=== PATIENT | female | born 1965 | race Caucasian/White ===

== ENCOUNTER 2017-05-25 09:26 | Observation (INO) | payer BC ==
[2017-05-25] VITALS (7 sets, daily range): BP systolic 125–140; BP diastolic 79–87; PULSE 72–87; RESP 20; TEMP 97.9–98.5; O2SAT 96–100
[~2017-05-25] VITALS: Ht 166.4 cm; Wt 63.5 kg
[2017-05-25] MEDS ORDERED: CHOL100025 CHEW (09:37)
[2017-05-25] MEDS ORDERED: ASPIRIN 81 MG CHEW TAB PO ONE (09:45)
[2017-05-25] MEDS ORDERED: SODIUM CHLORIDE 0.9% FLUSH 10 ML FLUSH IVF PRN (09:45)
--- NOTE | 2017-05-25 09:46 | PD ---
HPI Chief Complaint: Chest Pain Time Seen by Provider: 09:39 Travel History International Travel<30 days: No Contact w/Intl Traveler<30days: No Traveled to known affect area: No History of Present Illness HPI 51-year-old female here for evaluation of chest pain. Patient reports having left-sided chest pain since around 10 PM last night. Pain is been constant, described as sharp/ache, worse with inspiration, mild to moderate. The patient took a baby aspirin this morning. She denies any known history of CAD. There is family history of heart disease. No history of DVT or PE. No fevers, chills , cough, or recent illness. No hemoptysis. Patient reports that she drove down here from [place] 3 days ago. PFSH Past Medical History ?: Not Past Surgical History Other Surgery: Yes (HAJA) Social History Alcohol Use: Yes Tobacco Use: No Substance Use: No Allergies-Medications (Allergen,Severity, Reaction): Coded Allergies: codeine (Verified Allergy, Unknown, 05/25/17) Reported Meds & Prescriptions Reported Meds & Active Scripts Active Reported Vitamin D3 (Cholecalciferol) 1,000 Unit Chew 1,000 Units CHEW DAILY Review of Systems Except as stated in HPI: all other systems reviewed are Neg Physical Exam Narrative GENERAL: Well-developed, well-nourished, comfortable, no apparent distress. SKIN: Focused skin assessment warm/dry. HEAD: Atraumatic. Normocephalic. EYES: Pupils equal and round. No scleral icterus. No injection or drainage. ENT: Mucous membranes pink and moist. NECK: Trachea midline. No JVD. CARDIOVASCULAR: Regular rate and rhythm. Distal pulses brisk and equal bilaterally. RESPIRATORY: No accessory muscle use. Clear to auscultation. Breath sounds equal bilaterally. GASTROINTESTINAL: Abdomen soft, non-tender, nondistended. Hepatic and splenic margins not palpable. MUSCULOSKELETAL: No obvious deformities. No clubbing. No cyanosis. No edema. Bilateral calves are supple, nontender. NEUROLOGICAL: Awake and alert. No obvious cranial nerve deficits. Motor grossly within normal limits. Normal speech. PSYCHIATRIC: Appropriate mood and affect; insight and judgment normal. Data Data Last Documented VS Vital Signs Date Time Temp Pulse Resp B/P (MAP) Pulse Ox O2 Delivery O2 Flow Rate FiO2 05/25/17 11:30 72 20 125/81 (96) 99 05/25/17 10:44 Nasal Cannula 2.00 05/25/17 09:34 98.5 Orders Orders Basic Metabolic Panel (Bmp) (05/25/17 09:43) Ckmb (Isoenzyme) Profile (05/25/17 09:43) Complete Blood Count With Diff (05/25/17 09:43) D-Dimer (05/25/17 09:43) Magnesium (Mg) (05/25/17 09:43) Prothrombin Time / Inr (Pt) (05/25/17 09:43) Act Partial Throm Time (Ptt) (05/25/17 09:43) Troponin I (05/25/17 09:43) Chest, Single Ap (05/25/17 09:43) Ecg Monitoring (05/25/17 09:43) Bilateral Bp Monitoring (05/25/17 09:43) Iv Access Insert/Monitor (05/25/17 09:43) Oximetry (05/25/17 09:43) Aspirin Chew (Aspirin Chew) (05/25/17 09:45) Sodium Chloride 0.9% Flush (Ns Flush) (05/25/17 09:45) CKMB (05/25/17 09:50) CKMB% (05/25/17 09:50) Labs Laboratory Tests Test 05/25/17 09:50 White Blood Count 3.8 TH/MM3 Red Blood Count 4.26 MIL/MM3 Hemoglobin 12.5 GM/DL Hematocrit 36.9 % Mean Corpuscular Volume 86.7 FL Mean Corpuscular Hemoglobin 29.5 PG Mean Corpuscular Hemoglobin Concent 34.0 % Red Cell Distribution Width 12.2 % Platelet Count 145 TH/MM3 Mean Platelet Volume 7.8 FL Neutrophils (%) (Auto) 62.5 % Lymphocytes (%) (Auto) 26.8 % Monocytes (%) (Auto) 8.7 % Eosinophils (%) (Auto) 1.5 % Basophils (%) (Auto) 0.5 % Neutrophils # (Auto) 2.4 TH/MM3 Lymphocytes # (Auto) 1.0 TH/MM3 Monocytes # (Auto) 0.3 TH/MM3 Eosinophils # (Auto) 0.1 TH/MM3 Basophils # (Auto) 0.0 TH/MM3 CBC Comment DIFF FINAL Differential Comment Prothrombin Time 10.3 SEC Prothromb Time International Ratio 0.9 RATIO Activated Partial Thromboplast Time 21.7 SEC D-Dimer Quantitative (PE/DVT) 0.29 MG/L FEU Blood Urea Nitrogen 19 MG/DL Creatinine 0.78 MG/DL Random Glucose 95 MG/DL Calcium Level 8.6 MG/DL Magnesium Level 2.1 MG/DL Sodium Level 142 MEQ/L Potassium Level 3.8 MEQ/L Chloride Level 109 MEQ/L Carbon Dioxide Level 26.8 MEQ/L Anion Gap 6 MEQ/L Estimat Glomerular Filtration Rate 77 ML/MIN Total Creatine Kinase 103 U/L Creatine Kinase MB LESS THAN 0.5 NG/ML Troponin I LESS THAN 0.02 NG/ML MDM Medical Decision Making Medical Screen Exam Complete: Yes Emergency Medical Condition: Yes Interpretation(s) EKG: Sinus, rate 85, normal axis, normal intervals, no acute ischemic abnormality. Differential Diagnosis ACS, pneumothorax, pericarditis, PE, pneumonia, pleurisy, dissection Narrative Course Vital signs show heart rate 87, blood pressure 140/83, pulse ox 100% on room air , oral temp of 98.5F. CBC shows WBC 3.8, hemoglobin 12.5, hematocrit 36.9, platelets 145. BMP is unremarkable. Cardiac enzymes are negative. D-dimer is negative at 0.29. Chest x-ray: No acute cardio pulmonary disease. Patient was made aware of all findings. She was given a full aspirin. She now describes the pain as a dull/ache, worse with inspiration. I believe she is a good candidate for further cardiac evaluation in the chest pain center. She is amenable to this plan. Case discussed with hospitalist Dr. Snaders who will admit the patient to her service. Diagnosis Primary Impression: Chest pain Qualified Codes: R07.9 - Chest pain, unspecified Admitting Information Admitting Physician Requests: Observation Ulysses Stewart MD May 25, 2017 09:46
[2017-05-25 09:55] LABS: AUTOMATED NEUTROPHIL # 2.4 TH/MM3 (1.8-7.7); BASOPHIL % 0.5 % (0.0-2.0); EOSINOPHIL # 0.1 TH/MM3 (0-0.4); EOSINOPHIL % 1.5 % (0.0-4.0); HEMATOCRIT 36.9 % (35.0-46.0); HEMO FLAGS DIFF FINAL; LYMPH % 26.8 % (9.0-44.0); MEAN CELL VOLUME 86.7 FL (80.0-100.0); MEAN CORPUSCULAR HEMOGLOBIN 29.5 PG (27.0-34.0); MONO % 8.7 % (0.0-8.0); NEUT % 62.5 % (16.0-70.0); PLATELET COUNT 145 TH/MM3 (150-450); RED BLOOD COUNT 4.26 MIL/MM3 (4.00-5.30); RED CELL DISTRIBUTION WIDTH 12.2 % (11.6-17.2); WHITE BLOOD COUNT 3.8 TH/MM3 (4.0-11.0)
[2017-05-25 10:02] LABS: CHLORIDE 109 MEQ/L (98-107); POTASSIUM 3.8 MEQ/L (3.5-5.1); SODIUM (NA) 142 MEQ/L (136-145)
[2017-05-25 10:04] LABS: ANION GAP 6 MEQ/L (5-15); BICARBONATE 26.8 MEQ/L (21.0-32.0); MAGNESIUM 2.1 MG/DL (1.5-2.5)
[2017-05-25 10:07] LABS: GLOMERULAR FILTRATION RATE 77 ML/MIN (>89)
[2017-05-25 10:08] LABS: APTT (PATIENT) 21.7 SEC (24.3-30.1); INTERNATIONAL NORMALIZED RATIO 0.9 RATIO; PROTHROMBIN TIME - PATIENT 10.3 SEC (9.8-11.6)
[2017-05-25 10:10] LABS: BLOOD UREA NITROGEN 19 MG/DL (7-18); CREATINE KINASE 103 U/L (26-192)
[2017-05-25 10:22] LABS: CKMB LESS THAN 0.5 NG/ML (0.5-3.6)
--- NOTE | 2017-05-25 10:47 | RADRPT ---
EXAM DATE/TIME: 05/25/2017 10:05 [facility] COMPARISON: No previous studies available for comparison. INDICATIONS : Chest pain. MEDICAL HISTORY : None. SURGICAL HISTORY : Bunionectomy. ENCOUNTER: Initial ACUITY: 2 days PAIN SCORE: 7/10 LOCATION: Left chest FINDINGS: A single view of the chest demonstrates the lungs to be symmetrically aerated without evidence of mas s, infiltrate or effusion. The cardiomediastinal contours are unremarkable. Osseous structures are intact. CONCLUSION: 1. No acute cardiopulmonary disease. Chaz Gaines MD on May 25, 2017 at 10:45 Board Certified Radiologist. This report was verified electronically.
[2017-05-25] MEDS ORDERED: NITROGLYCERIN 0.4 MG SL 25 TABS/BTL SL PRN (12:00)
[2017-05-25] MEDS ORDERED: SODIUM CHLORIDE 0.9% FLUSH 10 ML FLUSH IV FLUSH PRN (12:00)
[2017-05-25] MEDS ORDERED: ACETAMINOPHEN 500 MG CPLT PO PRN (12:00)
[2017-05-25] MEDS ORDERED: ONDANSETRON HCL 4 MG/2 ML VIAL IV PRN (12:00)
--- NOTE | 2017-05-25 12:34 | HHI.HP ---
[facility] Primary Care Physician Unknown Admission Diagnosis Cheat Pain Diagnoses: (1) Chest pain Diagnosis: Principal Chief Complaint: "chest pain" Travel History International Travel<30 Days: No Contact w/Intl Traveler <30 Da: No Traveled to Known Affected Are: No History of Present Illness 51-year-old female with Vitamin D deficiency and possible hyperlipidemia but no other medical problems presents with complaint of chest pain and is accepted to chest pain center. Patient states stabbing chest pain started at 10 PM last night over the left side of her chest. She states it has been constant since onset. She states pain came on gradually and was a 5/10 last night. She states pain is still present now but is improved after receiving medication. The patient states pain is worse with inhaling or moving. She states pain was worse when she lifted her left arm to get on her shirt this morning. She denies any heavy lifting although is active and exercises, swimming, but denies any recent strain. Denies any associated diaphoresis, shortness of breath, numbness or tingling in the upper extremities , radiation of pain to the neck/jaws/back/arms, or nausea/vomiting. She denies any fevers or chills, cold, or cough symptoms. She took a baby aspirin at home and then received aspirin here in the ED. She admits to occasional abdominal pain, feeling "full" but this has been an ongoing issue, occurred this morning, but is not new. Denies any recent issues with regurgitation or belching. Patient drove here for vacation from [place] on Wednesday but did make frequent stops. She denies any hormone use including control, history of DVT or PE, hemoptysis, recent hospitalization/trauma/surgery in the last 3 months, recent immobilization of the legs, active cancer, or recent leg swelling or calf pain. Patient's states she has had multiple episodes of this chest pain in the past. She has never undergone a stress test. Review of Systems Constitutional: DENIES: Diaphoretic episodes, Fever, Chills, Dizziness Eyes: DENIES: Blurred vision Ears, nose, mouth, throat: DENIES: Throat pain, Ear Pain, Running Nose Respiratory: DENIES: Cough, Hemoptysis, Shortness of breath Cardiovascular: COMPLAINS OF: Chest pain, DENIES: Lower Extremity Edema Gastrointestinal: COMPLAINS OF: Abdominal pain, DENIES: Black stools, Bloody stools, Constipation, Diarrhea, Nausea, Vomiting Genitourinary: DENIES: Urinary frequency, Hematuria, Dysuria Musculoskeletal: DENIES: Back pain, Neck pain Integumentary: DENIES: Rash Neurologic: COMPLAINS OF: Headache (frequent from sleeping wrong (neck tension) ), DENIES: Localized weakness, Paresthesias Past Family Social History Past Medical History States her cholesterol is 200, but HDL is high. Lifestyle modifications only. Vitamin D deficiency Past Surgical History Left bunionectomy Reported Medications Vitamin D3 (Cholecalciferol) 1,000 Unit Chew 1,000 Units CHEW DAILY Allergies: Coded Allergies: codeine (Verified Allergy, Unknown, 05/25/17) Family History Mother: Age 75, living; hypertension, hyperlipidemia. No history of ID. Does not know father's history. Maternal aunt: Heart murmur. No siblings. Social History Patient works as a financial aid director. From [place]. Patient states she is currently on vacation so she is drinking about 2 alcoholic beverages per day but normally only drinks 2 per week. Denies history of tobacco use. Denies history of illicit drug use. Physical Exam Vital Signs Vital Signs Date Time Temp Pulse Resp B/P (MAP) Pulse Ox O2 Delivery O2 Flow Rate FiO2 05/25/17 12:20 76 20 126/85 (99) 96 05/25/17 11:30 72 20 125/81 (96) 99 05/25/17 10:44 75 20 131/83 (99) 100 Nasal Cannula 2.00 05/25/17 09:56 76 20 137/79 (98) 98 Nasal Cannula 2.00 134/85 (101) 05/25/17 09:52 98 05/25/17 09:34 98.5 87 20 140/83 (102) 100 Physical Exam GENERAL: This is a pleasant well-nourished, well-developed patient, in no apparent distress. SKIN: No rashes, ecchymoses or lesions. Warm and dry. HEAD: Atraumatic. Normocephalic. EYES: No scleral icterus. No injection or drainage. NECK: Trachea midline. CHEST: Mild reproducible tenderness over the left anterior chest, but patient states this is different from the pain she is feeling. There is no reproducible tenderness over the left lateral chest. No chest pain elicited with left shoulder flexion. CARDIOVASCULAR: Regular rate and rhythm without murmurs, gallops, or rubs. RESPIRATORY: Clear to auscultation. Breath sounds equal bilaterally. No wheezes , rales, or rhonchi. GASTROINTESTINAL: Normoactive bowel sounds. Abdomen soft, non-tender, nondistended. No guarding. MUSCULOSKELETAL: No lower extremity edema or calf pain bilaterally. NEUROLOGICAL: Awake and alert. Motor grossly within normal limits. Five out of 5 muscle strength in bilateral arms and legs. Normal speech. PSYCHIATRIC: Normal mood and affect. Insight and judgement normal. Laboratory Laboratory Tests Test 05/25/17 09:50 White Blood Count 3.8 Red Blood Count 4.26 Hemoglobin 12.5 Hematocrit 36.9 Mean Corpuscular Volume 86.7 Mean Corpuscular Hemoglobin 29.5 Mean Corpuscular Hemoglobin Concent 34.0 Red Cell Distribution Width 12.2 Platelet Count 145 Mean Platelet Volume 7.8 Neutrophils (%) (Auto) 62.5 Lymphocytes (%) (Auto) 26.8 Monocytes (%) (Auto) 8.7 Eosinophils (%) (Auto) 1.5 Basophils (%) (Auto) 0.5 Neutrophils # (Auto) 2.4 Lymphocytes # (Auto) 1.0 Monocytes # (Auto) 0.3 Eosinophils # (Auto) 0.1 Basophils # (Auto) 0.0 CBC Comment DIFF FINAL Differential Comment Prothrombin Time 10.3 Prothromb Time International Ratio 0.9 Activated Partial Thromboplast Time 21.7 D-Dimer Quantitative (PE/DVT) 0.29 Blood Urea Nitrogen 19 Creatinine 0.78 Random Glucose 95 Calcium Level 8.6 Magnesium Level 2.1 Sodium Level 142 Potassium Level 3.8 Chloride Level 109 Carbon Dioxide Level 26.8 Anion Gap 6 Estimat Glomerular Filtration Rate 77 Total Creatine Kinase 103 Creatine Kinase MB LESS THAN 0.5 Troponin I LESS THAN 0.02 Result Diagram: 05/25/17 0950 05/25/17 0950 Caprini VTE Risk Assessment Caprini VTE Risk Assessment: No/Low Risk (score <= 1) Caprini Risk Assessment Model Point Value = 1 Point Value = 2 Point Value = 3 Point Value = 5 Age 41-60 Minor surgery BMI > 25 kg/m2 Swollen legs Varicose veins or History of unexplained or recurrent spontaneous Oral contraceptives or hormone replacement Sepsis (< 1 month) Serious lung disease, including pneumonia (< 1 month) Abnormal pulmonary function Acute myocardial infarction Congestive heart failure (< 1 month) History of inflammatory bowel disease Medical patient at bed rest Age 61-74 Arthroscopic surgery Major open surgery (> 45 min) Laparoscopic surgery (> 45 min) Malignancy Confined to bed (> 72 hours) Immobilizing plaster cast Central venous access Age >= 75 History of VTE Family history of VTE Factor V Leiden Prothrombin [id number] Lupus anticoagulant Anticardiolipin antibodies Elevated serum homocysteine Heparin-induced thrombocytopenia Other congenital or acquired thrombophilia Stroke (< 1 month) Elective arthroplasty Hip, pelvis, or leg fracture Acute spinal cord injury (< 1 month) Prophylaxis Regimen Total Risk Factor Score Risk Level Prophylaxis Regimen 0-1 Low Early ambulation 2 Moderate Order ONE of the following: *Sequential Compression Device (SCD) *Heparin 5000 units SQ BID 3-4 Higher Order ONE of the following medications: *Heparin 5000 units SQ TID *Enoxaparin/Lovenox 40 mg SQ daily (WT < 150 kg, CrCl > 30 mL/min) *Enoxaparin/Lovenox 30 mg SQ daily (WT < 150 kg, CrCl > 10-29 mL/min) *Enoxaparin/Lovenox 30 mg SQ BID (WT < 150 kg, CrCl > 30 mL/min) AND/OR *Sequential Compression Device (SCD) 5 or more Highest Order ONE of the following medications: *Heparin 5000 units SQ TID (Preferred with Epidurals) *Enoxaparin/Lovenox 40 mg SQ daily (WT < 150 kg, CrCl > 30 mL/min) *Enoxaparin/Lovenox 30 mg SQ daily (WT < 150 kg, CrCl > 10-29 mL/min) *Enoxaparin/Lovenox 30 mg SQ BID (WT < 150 kg, CrCl > 30 mL/min) AND *Sequential Compression Device (SCD) Assessment and Plan Assessment and Plan 51-year-old female with: Chest pain, atypical: Constant since 10 PM last night, stabbing over left lateral chest worse with inhaling and movement. Chest x-ray personally interpreted without acute disease. No elevation in white blood cell count. No recent cold symptoms. D-dimer negative. Vitals normal. EKG #1 personally interpreted with normal sinus rhythm and no evidence of ischemia. First set of cardiac enzymes normal. Likely costochondritis although other differentials include GERD, pleurisy, anxiety, and less likely cardiac. -Serial EKG and enzyme -Telemetry -Daily 325 mg aspirin -Nitroglycerin as needed for chest pain -NPO. Second set of enzymes and EKG #2 reviewed and are normal. Treadmill test ordered. DVT prevention: Early ambulation. ETT reviewed by myself and Dr. Powell, dough catcher. No ischemia evident. Patient will be given 15 mg IV Toradol. If Toradol provides relief, she is advised she can take ibuprofen at home. Discharge disposition: Home in fair condition. Diet: Heart healthy Activity: Avoid heavy lifting, bending, or strenuous exercise. Medications: Continue home medication. Follow-up: PCP 1 week. Patient advised to return to the ER if she has any worsening pain or develops shortness of breath. Discussed Condition With patient, Dr. Sanders Problem Qualifiers (1) Chest pain: Qualified Codes: R07.1 - Chest pain on breathing Eloise Gutierrez May 25, 2017 12:34
[2017-05-25 13:34] LABS: CREATINE KINASE 90 U/L (26-192)
[2017-05-25] MEDS ORDERED: KETOROLAC TROMETHAMINE 30 MG/ML (IVP) VIAL IV PUSH ONE (17:15)
--- NOTE | 2017-05-25 17:15 | HHI.DCPOC ---
Discharge Care Plan Diagnosis: (1) Chest pain Your Health Problems Are: Chest Pain Goals to Promote Your Health * To prevent worsening of your condition and complications * To maintain your health at the optimal level Directions to Meet Your Goals Take your medications as prescribed Follow your dietary instruction Follow activity as directed Keep your appointments as scheduled Take your immunizations and boosters as scheduled If your symptoms worsen call your PCP, if no PCP go to Urgent Care Center or Emergency Room Smoking is Dangerous to Your Health. Avoid second hand smoke Call the 24-hour hour crisis hotline for domestic abuse at Eloise Gutierrez May 25, 2017 17:15
[2017-05-25 17:21] LABS: CREATINE KINASE 85 U/L (26-192)
[2017-05-25] MEDS ORDERED: SODIUM CHLORIDE 0.9% FLUSH 10 ML FLUSH IV FLUSH SCH (21:00)
[2017-05-26] MEDS ORDERED: ASPIRIN 325 MG TAB PO SCH (09:00)
[2017-05-26] MEDS ORDERED: PNEUMOCOCCAL POLYVALENT INJ 25 MCG/0.5 ML SYR IM ONE (10:00)
--- NOTE | 2017-05-26 17:51 | EKG ---
Date Performed: 05/25/2017 Time Performed: 16:45:11 PTAGE: 51 years EKG: Sinus rhythm NORMAL ECG Since PREVIOUS TRACING , no significant change noted PREVIOUS TRACIN05/25/2017 12.53 DOCTOR: Bella Powell Interpretating Date/Time 05/26/2017 17:48:53
--- NOTE | 2017-05-26 17:51 | EKG ---
Date Performed: 05/25/2017 Time Performed: 12:53:45 PTAGE: 51 years EKG: Sinus rhythm NORMAL ECG Since PREVIOUS TRACING , no significant change noted DOCTOR: Bella Powell Interpretating Date/Time 05/26/2017 17:49:20
--- NOTE | 2017-05-26 17:52 | EKG ---
Date Performed: 05/25/2017 Time Performed: 09:37:47 PTAGE: 51 years EKG: Sinus rhythm NORMAL ECG NO PREVIOUS TRACING DOCTOR: Bella Powell Interpretating Date/Time 05/26/2017 17:49:49
--- NOTE | 2017-05-28 14:59 | TR ---
Date Performed: 05/25/2017 Time Performed: 14:54:27 DOCTOR: Bella Powell DRUG LIST: CLINICAL HISTORY: REASON FOR TEST: Chest pain REASON FOR ENDING: OBSERVATION: CONCLUSION: Patient tolerated VALERIA protocol with Total Exercise Time=10:12 Maximum CY=501 % Max HR Achieved=86.0% Maximum SV=778/84. Testing stopped secondary to goal achieved. Patient experienced pleuritic pain on inhalation which was present prior to testing. HR and BP appropriate response to e xercise. HR and BP recovered appropriately. No ischemia COMMENTS:
== END 2017-05-25 18:45 | disposition home or self-care (01) ==
LOC: PHED 09:26 → PHEDA 11:51 → PH3A 14:18
PROVIDERS: ADMIT Internal Medicine; ATTEND Internal Medicine
DX: R07.1 Chest pain on breathing (principal); E55.9 Vitamin D deficiency, unspecified; Z82.49 Family history of ischemic heart disease and other diseases of the circulatory system
CPT/HCPCS: 71010; 80048; 82550; 82552; 83735; 84484; 85025; 85379; 85610; 85730; 93005; 93017; 96374; 96376; 99285; G0378; J1885